=== PATIENT | male | born 1960 | race Caucasian/White ===

== ENCOUNTER → 2020-05-13 12:56 | Outpatient (BNVA) | payer MEDICARE, MEDICAID, SELFPAY | PROVIDERS: PCP Internal Medicine; Visit Provider Anesthesiology | DX: G89.4 Chronic pain syndrome (principal); M47.27 Other spondylosis with radiculopathy, lumbosacral region; M51.36 Other intervertebral disc degeneration, lumbar region; M17.0 Bilateral primary osteoarthritis of knee; Z79.891 Long term (current) use of opiate analgesic | CPT/HCPCS: 99213 ==

== ENCOUNTER 2020-05-22 13:35 | Outpatient (REF) | payer MEDICARE, MEDICAID, SELFPAY ==
--- NOTE | 2020-05-22 13:40 | MR_ITS ---
MR CERVICAL SPINE WITHOUT IV CONTRAST CLINICAL INFORMATION: Hand weakness. Myelopathy. COMPARISON: None available. TECHNIQUE: MRI of the cervical spine was obtained using routine sequences without contrast. FINDINGS: Straightening the cervical lordosis. There is mild retrosubluxation of C3 on C4, C4 on C5, and C5 on C6. There Modic type I endplate signal changes at C4-C5. There is no additional bone marrow edema. There are no acute fractures. The partially imaged intracranial compartment is unremarkable. The cervical arterial flow voids are maintained. There are no significant soft tissue findings. C2-C3: Shallow central disc protrusion mildly narrows the central canal. Uncovertebral joint hypertrophy and hypertrophic facet arthropathy result in mild right-sided foraminal encroachment. C3-C4: A central disc protrusion results in severe central canal stenosis and compression of the cervical cord. Uncovertebral joint spurring results in mild bilateral foraminal encroachment. C4-C5: Broad-based central disc protrusion results in severe central canal stenosis and compression of the cervical spinal cord. Uncovertebral joint spurring and hypertrophic facet arthropathy result in severe right greater than left foraminal stenosis. There are intramedullary T2 signal changes within the cord at this level. C5-C6: A central disc protrusion compresses the cervical cord, resulting in moderate to severe central canal stenosis. Uncovertebral joint spurring and hypertrophic facet arthropathy result in moderate bilateral foraminal stenosis. C6-C7: Shallow central disc protrusion slightly flattens the ventral cord mildly narrowing the central canal. Uncovertebral joint spurring and hypertrophic facet arthropathy result in severe left-sided foraminal stenosis. C7-T1: There is a slight annular disc bulge. There is no central canal stenosis. Uncovertebral joint spurring and hypertrophic facet arthropathy result in moderate bilateral foraminal stenosis. MR/MR cervical spine wo con IMPRESSION: - At C3-C4, a central disc protrusion protrusion results in severe central canal stenosis and compression of the cervical cord. - At C4-C5, a central disc protrusion results in severe central canal stenosis and compression of the cervical spinal cord and multifactorial degenerative changes result in severe right greater than left foraminal stenosis. 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 Modic 1 endplate signal changes at this level. - At C5-C6, a central disc protrusion compresses the cervical cord resulting in moderate to severe central canal stenosis. Moderate bilateral foraminal stenosis at this level. - At C6-C7, a shallow central disc protrusion flattens the ventral cord mildly narrowing the central canal and multifactorial degenerative changes result in severe left-sided foraminal stenosis. - At C7-T1, multifactorial degenerative changes result in moderate bilateral foraminal stenosis. Covering provider paged with these findings at 1:20 PM on May 25, 2020.
== END 2020-05-22 13:36 | disposition home or self-care (01) ==
LOC: HO.MRI 13:35
PROVIDERS: PCP Internal Medicine; Visit Provider Neurological Surgery
DX: R29.898 Other symptoms and signs involving the musculoskeletal system (principal); G95.9 Disease of spinal cord, unspecified
CPT/HCPCS: 72141

== ENCOUNTER 2020-06-09 05:08 | Outpatient (REF) | payer MEDICARE, MEDICAID, SELFPAY ==
--- NOTE | 2020-06-09 09:11 | FL_ITS ---
EXAMINATION: XR FLUOROSCOPY WITH IMAGES CLINICAL INFORMATION: Chronic pain syndrome COMPARISON: Lumbar spine MRI 02/25/2020 TECHNIQUE: Fluoroscopy performed by Dr. Gonzalez. Fluoroscopy time: 0.7 minutes DAP: 7.2 Gycm2 Images: 3 FINDINGS: 3 intraoperative fluoroscopic images of the lumbar spine were obtained. These demonstrate positioning of needles with injection of contrast along the course of the exiting nerve roots on the left at L2-3 and L3-4 and on the right at L5-S1. FL/FL guidance in treatment room IMPRESSION: Intraprocedural fluoroscopy provided for injections as described above.
== END 2020-06-09 05:09 | disposition home or self-care (01) ==
LOC: HO.RADIR 05:08
PROVIDERS: Visit Provider Anesthesiology
DX: G89.4 Chronic pain syndrome (principal); M17.0 Bilateral primary osteoarthritis of knee; M47.27 Other spondylosis with radiculopathy, lumbosacral region; M51.36 Other intervertebral disc degeneration, lumbar region
CPT/HCPCS: 64483; 64484; J3300; Q9967

== ENCOUNTER → 2020-06-17 14:06 | Outpatient (BNVA) | payer MEDICARE, MEDICAID, SELFPAY | PROVIDERS: PCP Internal Medicine; Referring Provider Internal Medicine; Visit Provider Anesthesiology | DX: G89.4 Chronic pain syndrome (principal); M47.27 Other spondylosis with radiculopathy, lumbosacral region; M51.36 Other intervertebral disc degeneration, lumbar region; M17.0 Bilateral primary osteoarthritis of knee; Z79.891 Long term (current) use of opiate analgesic | CPT/HCPCS: 99212 ==

== ENCOUNTER → 2020-07-15 14:38 | Outpatient (BNVA) | payer MEDICARE, MEDICAID, SELFPAY | PROVIDERS: PCP Internal Medicine; Visit Provider Anesthesiology | DX: M47.27 Other spondylosis with radiculopathy, lumbosacral region (principal); M51.36 Other intervertebral disc degeneration, lumbar region; G89.4 Chronic pain syndrome; M17.0 Bilateral primary osteoarthritis of knee | CPT/HCPCS: 99212 ==

== ENCOUNTER → 2020-07-20 10:53 | Outpatient (BNVA) | payer MEDICARE, MEDICAID, SELFPAY | PROVIDERS: PCP Internal Medicine; Visit Provider Anesthesiology | DX: Z76.89 Persons encountering health services in other specified circumstances (principal) | CPT/HCPCS: 99212 ==

== ENCOUNTER 2020-08-12 10:32 | Outpatient (REF) | payer MEDICARE, MEDICAID, SELFPAY ==
--- NOTE | 2020-08-12 12:32 | XR_ITS ---
EXAMINATION: XR BILATERAL KNEES CLINICAL INFORMATION: Pain COMPARISON: 02/12/2017 and 11/02/2007 TECHNIQUE: AP standing views of both knees as well as lateral and sunrise views of each knee. FINDINGS: Right Knee: There is no evidence of acute fracture or dislocation of the right knee. Right knee joint spaces are maintained. There is a minimal right knee effusion. There are small spurs about the articular surface of the patella. There are small patella spurs at insertion of quadriceps and patellar tendons. Left Knee: There is no evidence of acute fracture or dislocation of the left knee. No left knee effusion. Joint spaces are maintained. Patella spurs sites of insertion of quadriceps and patellar tendons present. There is some degenerative spurring about the medial and lateral patellar facets. XR/XR knee standing BI IMPRESSION: Mild degenerative change of both knees. Small right knee effusion.
--- NOTE | 2020-08-12 12:32 | XR_ITS ---
EXAMINATION: XR BILATERAL KNEES CLINICAL INFORMATION: Pain COMPARISON: 02/12/2017 and 11/02/2007 TECHNIQUE: AP standing views of both knees as well as lateral and sunrise views of each knee. FINDINGS: Right Knee: There is no evidence of acute fracture or dislocation of the right knee. Right knee joint spaces are maintained. There is a minimal right knee effusion. There are small spurs about the articular surface of the patella. There are small patella spurs at insertion of quadriceps and patellar tendons. Left Knee: There is no evidence of acute fracture or dislocation of the left knee. No left knee effusion. Joint spaces are maintained. Patella spurs sites of insertion of quadriceps and patellar tendons present. There is some degenerative spurring about the medial and lateral patellar facets. XR/XR knee LT 2V IMPRESSION: Mild degenerative change of both knees. Small right knee effusion.
--- NOTE | 2020-08-12 12:32 | XR_ITS ---
EXAMINATION: XR BILATERAL KNEES CLINICAL INFORMATION: Pain COMPARISON: 02/12/2017 and 11/02/2007 TECHNIQUE: AP standing views of both knees as well as lateral and sunrise views of each knee. FINDINGS: Right Knee: There is no evidence of acute fracture or dislocation of the right knee. Right knee joint spaces are maintained. There is a minimal right knee effusion. There are small spurs about the articular surface of the patella. There are small patella spurs at insertion of quadriceps and patellar tendons. Left Knee: There is no evidence of acute fracture or dislocation of the left knee. No left knee effusion. Joint spaces are maintained. Patella spurs sites of insertion of quadriceps and patellar tendons present. There is some degenerative spurring about the medial and lateral patellar facets. XR/XR knee RT 2V IMPRESSION: Mild degenerative change of both knees. Small right knee effusion.
== END 2020-08-12 10:33 | disposition home or self-care (01) ==
LOC: HO.HOSX 10:32
PROVIDERS: Visit Provider Orthopaedic Surgery
DX: M25.561 Pain in right knee (principal); M25.562 Pain in left knee
CPT/HCPCS: 73560; 73565; 99212

== ENCOUNTER → 2020-08-26 09:31 | Outpatient (BNVA) | payer MEDICARE, MEDICAID, SELFPAY | PROVIDERS: PCP Internal Medicine; Visit Provider Orthopaedic Surgery | DX: M22.2X1 Patellofemoral disorders, right knee (principal); M22.2X2 Patellofemoral disorders, left knee | CPT/HCPCS: 20610; 99202; J1040 ==

== ENCOUNTER → 2020-09-09 13:28 | Outpatient (BNVA) | payer MEDICARE, MEDICAID, SELFPAY | PROVIDERS: PCP Internal Medicine; Visit Provider Anesthesiology | DX: M47.27 Other spondylosis with radiculopathy, lumbosacral region (principal); M51.36 Other intervertebral disc degeneration, lumbar region; G89.4 Chronic pain syndrome; M17.0 Bilateral primary osteoarthritis of knee | CPT/HCPCS: 99212 ==

== ENCOUNTER → 2020-09-29 11:43 | Outpatient (BNVA) | payer MEDICARE, MEDICAID, SELFPAY | PROVIDERS: PCP Internal Medicine; Visit Provider Student in an Organized Health Care Education/Training Program | DX: M17.0 Bilateral primary osteoarthritis of knee (principal) | CPT/HCPCS: 99212 ==

== ENCOUNTER → 2020-10-07 15:42 | Outpatient (BNVA) | payer MEDICARE, MEDICAID, SELFPAY | PROVIDERS: PCP Internal Medicine; Visit Provider Anesthesiology | DX: M47.27 Other spondylosis with radiculopathy, lumbosacral region (principal); M51.36 Other intervertebral disc degeneration, lumbar region; M17.0 Bilateral primary osteoarthritis of knee; G89.4 Chronic pain syndrome; Z79.899 Other long term (current) drug therapy | CPT/HCPCS: 99212 ==